=== PATIENT | male | born 2000 | race Caucasian/White ===

== ENCOUNTER 2021-03-24 01:04 | Emergency (ER) | payer SELFPAY ==
[~2021-03-24] VITALS: Ht 182.9 cm; Wt 81.6 kg
[2021-03-24] MEDS ORDERED: NACL 0.9% 2,000 ML IV ONE (01:45)
[2021-03-24] MEDS ORDERED: NACL 0.9% 1,000 ML IV ONE (01:45)
[2021-03-24] MEDS ORDERED: ONDANSETRON 4 MG/2 ML VIAL IVP ONE (01:50)
--- NOTE | 2021-03-24 02:00 | NUR ---
PT BIBA FOR ETOH. PT WAS GCS 13 UPON ARRIVAL. PT WAS VOMITING BUT ONLY CLEAR LIQUIDS
[2021-03-24 02:03] LABS: BASOPHILS % (AUTO) 0.2 % (0.0-2.0); EOSINOPHILS # (AUTO) 0.1 K/uL (0-0.4); EOSINOPHILS % (AUTO) 0.6 % (0.0-4.0); HEMATOCRIT 38.7 % (36-52); HEMOGLOBIN 13.6 g/dL (12.0-18.0); LYMPHOCYTES # (AUTO) 1.1 K/uL (2.0-11.5); LYMPHOCYTES % (AUTO) 11.4 % (20.5-51.1); MEAN CORPUSCULAR HEMOGLOBIN 31 pg (27-31); MEAN CORPUSCULAR HGB CONC 35 g/dL (33-37); MEAN CORPUSCULAR VOLUME 87.7 fL (80-94); MONOCYTES # (AUTO) 0.7 K/uL (0.8-1.0); MONOCYTES % (AUTO) 7.6 % (1.7-9.3); NEUTROPHILS # (AUTO) 7.4 K/uL (1.8-7.7); NEUTROPHILS % (AUTO) 80.2 % (42.2-75.2); PLATELET COUNT (AUTO) 139 K/uL (140-450); RED BLOOD CELL COUNT(AUTO) 4.42 MIL/uL (4.20-6.10); WHITE BLOOD COUNT (AUTO) 9.2 K/uL (4.8-10.8)
[2021-03-24 02:21] LABS: ALBUMIN 4.2 g/dL (3.4-5.0); ANION GAP 15.5 (8-16); CARBON DIOXIDE 24.7 mmol/L (21-32); CREATININE 1.1 mg/dL (0.6-1.3); POTASSIUM 3.2 mmol/L (3.5-5.1); TOTAL BILIRUBIN 0.5 mg/dL (0.0-1.0)
[2021-03-24 02:32] VITALS: BP 110/72
[2021-03-24] MEDS ORDERED: POTASSIUM CHLORIDE 10 MEQ TABER PO ONE (03:05)
[2021-03-24 04:36] VITALS: BP 110/72
== END 2021-03-24 04:29 | disposition home or self-care (01) ==
LOC: MED 01:04
DX: F10.129 Alcohol abuse with intoxication, unspecified (principal); R11.2 Nausea with vomiting, unspecified; Y90.9 Presence of alcohol in blood, level not specified
CPT/HCPCS: 36415; 80053; 85025; 96361; 96374; 99283; G0482